=== PATIENT | female | born 1955 | race Caucasian/White ===

== ENCOUNTER 2017-04-11 20:01 | Emergency (ER) | payer BC ==
[2017-04-11 20:18] VITALS: BP 163/91
[2017-04-11] MEDS ORDERED: NS 0.9% 1000 ML* 1,000 ML IV SCH (20:30)
[2017-04-11 20:49] LABS: Hematocrit 46 % (35-47); Hemoglobin 15.1 g/dl (12.0-16.0); Mean Corpuscular HGB Conc 33 g/dl (31-36); Mean Corpuscular Hemoglobin 30 pg (27-31); Mean Corpuscular Volume 90 fL (80-97); Mean Platelet Volume 8 um3 (7.4-10.4); Red Blood Count 5.11 10^6/ul (4.0-5.4); Red Cell Distribution Width 15 % (10.5-15)
[2017-04-11 21:05] LABS: ALT 37 U/L (7-52); AST 23 U/L (13-39); Albumin 4.5 g/dL (3.2-5.2); Alkaline Phosphatase 85 U/L (34-104); Anion Gap 7 mmol/L (2-11); BUN/Creatinine Ratio 25.5 (8-20); Blood Urea Nitrogen 14 mg/dL (6-24); C Reactive Protein 2.06 mg/L (< 5.00); CO2 Carbon Dioxide 29 mmol/L (22-32); Calcium 9.7 mg/dL (8.6-10.3); Chloride 106 mmol/L (101-111); Creatine Kinase 62 U/L (10-223); Glucose 113 mg/dL (70-100); Lipase 18 U/L (11.0-82.0); Magnesium 2.1 mg/dL (1.9-2.7); Potassium 3.7 mmol/L (3.5-5.0); Sodium 142 mmol/L (133-145); Total Protein 7.5 g/dL (6.4-8.9)
[2017-04-11 21:11] LABS: Urine Bilirubin Negative (Negative); Urine Glucose Negative (Negative); Urine Nitrite Negative (Negative)
[2017-04-11 21:18] LABS: Benzodiazepine Urine Screen Presumptive Positive (None Detect)
[2017-04-11] MEDS ORDERED: Nicotine Inhaler* 10 MG AMP ONE (21:19)
[2017-04-11] MEDS ORDERED: Mouth Piece, Nicotine* 1 EACH CARTRIDGE ONE (21:20)
[2017-04-11 21:23] LABS: Acetaminophen < 15 mcg/mL; Alcohol 175 mg/dL (<10); Salicylate < 2.50 mg/dL (<30)
[2017-04-11 21:39] LABS: TSH (Thyroid Stimulating Horm) 0.03 mcIU/mL (0.34-5.60)
[2017-04-11] MEDS: Nicotine Inhaler* 10 MG AMP INH PRN (22:00)
[2017-04-11] MEDS: Mouth Piece, Nicotine* 1 EACH CARTRIDGE INH ONE (22:01)
--- NOTE | 2017-04-11 22:41 | ED ---
Kandy Vogt Thomas, scribed for Shyam Tolliver MD on 04/11/17 at 2057 . Respiratory - HPI Summary HPI Summary: 61 y/o F referred from Urgent care c/o generalized malaise and cough with mucus production that began 3-4 weeks ago and has worsened since. Pt has no relief from allergy medications, inhaler, antibiotics, and Prednisone. Associated symptoms include fatigue, wheezing and sore throat. She denies fever/chills. Pt is currently taking 20 mg Doxycycline twice a day, 20 mg Prednisone three times per day, and 220 mg of Asmanex. - History of Current Complaint Chief Complaint: EDShortnessOfBreath Stated Complaint: UPPER RESP COMPLAINT/SENT BY CC Time Seen by Provider: 04/11/17 20:06 Hx Obtained From: Patient Onset/Duration: Lasting Weeks - cough began 3-4 weeks ago, Still Present Timing: Constant Current Severity: Moderate Pain Intensity: 0 Character: Wheezing, Cough (Productive) - with mucus production Sputum Color: Clear Aggravating Factor(s): Nothing Alleviating Factor(s): Nothing Associated Signs and Symptoms: Wheezing - Allergy/Home Medications Allergies/Adverse Reactions: Allergies Allergy/AdvReac Type Severity Reaction Status Date / Time No Known Allergies Allergy Verified 04/11/17 20:18 PMH/Surg Hx/FS Hx/Imm Hx Previously Healthy: No Endocrine/Hematology History: Reports: Hx Thyroid Disease - TOTAL THYROIDECTOMY AND PARATHYROIDECTOMY Denies: Hx Diabetes Cardiovascular History: Reports: Hx Hypertension - HX OF NO PROBLEMS NOW, Other Cardiovascular Problems/Disorders - Hx HTN Denies: Hx Pacemaker/ICD GI History: Reports: Other GI Disorders - Diverticulities 12/24 History: Denies: Hx Renal Disease Musculoskeletal History: Denies: Hx Osteoporosis Sensory History: Denies: Hx Contacts or Glasses, Hx Hearing Aid Opthamlomology History: Denies: Hx Contacts or Glasses Neurological History: Reports: Other Neuro Impairments/Disorders - Takes neurontin for restless leg syndrome Psychiatric History: Reports: Hx Depression - CONTROL IH MED PT. STATES Denies: Hx Panic Disorder - Cancer History Cancer Type, Location and Year: Thyroid CA 11/24 Hx Chemotherapy: No Hx Radiation Therapy: No - Surgical History Surgery Procedure, Year, and Place: 2004 LEFT FOOT 5TH TOE [place]GERY, [facility] [place]. 2006 RIGHT FOOT 5TH TOE SURGERY, [facility] [place]. 2013 TOTAL THYROIDECTOMY AND PARATHYROIDECTOMY , [facility] [place]. 2016 RIGHT FOOT PLANTAR FAS Hx Anesthesia Reactions: No Infectious Disease History: No Infectious Disease History: Denies: Traveled Outside the [place] in Last 30 Days - Family History Known Family History: Positive: Cardiac Disease, Diabetes - Social History Alcohol Use: Occasionally Alcohol Amount: 3 today Substance Use Type: Reports: None Smoking Status (MU): Heavy Every Day Tobacco Smoker Type: Cigarettes Amount Used/How Often: PACK A DAY Have You Smoked in the Last Year: Yes Review of Systems Positive: Fatigue, Other - Generalized malaise. Negative: Fever, Chills Positive: Sore Throat Positive: Cough - Productive cough, Other - Wheezing All Other Systems Reviewed And Are Negative: Yes Physical Exam - Summary Physical Exam Summary: General: well-appearing, no pain distress Skin: warm, color reflects adequate perfusion, dry Head: normal Eyes: EOMI, HANNA ENT: normal Neck: supple, nontender Respiratory: Rhonchi with cough, breath sounds present. Cardiovascular: RRR Abdomen: soft, nontender Bowel: present Musculoskeletal: normal, strength/ROM intact Neurological: normal, sensory/motor intact, A&O x3 Psychological: affect/mood appropriate Triage Information Reviewed: Yes Vital Signs On Initial Exam: Initial Vitals Temp Pulse Resp BP Pulse Ox 97.4 F 82 18 163/91 99 04/11/17 20:09 04/11/17 20:09 04/11/17 20:09 04/11/17 20:09 04/11/17 20:09 Vital Signs Reviewed: Yes - [place] Coma Scale Coma Scale Total: 15 Diagnostics - Vital Signs Vital Signs Temp Pulse Resp BP Pulse Ox 04/11/17 20:36 99 04/11/17 20:09 97.4 F 82 18 163/91 99 - Laboratory Lab Results: Lab Results 04/11/17 04/11/17 04/11/17 Range/Units 20:36 20:36 20:36 WBC (3.5-10.8) 10^3/ul RBC (4.0-5.4) 10^6/ul Hgb (12.0-16.0) g/dl Hct (35-47) % MCV (80-97) fL MCH (27-31) pg MCHC (31-36) g/dl RDW (10.5-15) % Plt Count (150-450) 10^3/ul MPV (7.4-10.4) um3 Neut % (Auto) (38-83) % Lymph % (Auto) (25-47) % [place] % (Auto) (1-9) % Eos % (Auto) (0-6) % Baso % (Auto) (0-2) % Absolute Neuts (auto) (1.5-7.7) 10^3/ul Absolute Lymphs (auto) (1.0-4.8) 10^3/ul Absolute Monos (auto) (0-0.8) 10^3/ul Absolute Eos (auto) (0-0.6) 10^3/ul Absolute Basos (auto) (0-0.2) 10^3/ul Absolute Nucleated RBC 10^3/ul Nucleated RBC % INR (Anticoag Therapy) 0.78 L (0.89-1.11) APTT 26.2 (26.0-36.3) seconds D-Dimer, Quantitative < 200 (Less Than 230) ng/mL Sodium 142 (133-145) mmol/L Potassium 3.7 (3.5-5.0) mmol/L Chloride 106 (101-111) mmol/L Carbon Dioxide 29 (22-32) mmol/L Anion Gap 7 (2-11) mmol/L BUN 14 (6-24) mg/dL Creatinine 0.55 (0.51-0.95) mg/dL Est GFR ( Amer) 144.0 (>60) Est GFR (Non-Af Amer) 112.0 (>60) BUN/Creatinine Ratio 25.5 H (8-20) Glucose 113 H (70-100) mg/dL Lactic Acid (0.5-2.0) mmol/L Calcium 9.7 (8.6-10.3) mg/dL Magnesium 2.1 (1.9-2.7) mg/dL Total Bilirubin 0.30 (0.2-1.0) mg/dL AST 23 (13-39) U/L ALT 37 (7-52) U/L Alkaline Phosphatase 85 (34-104) U/L Ammonia 47 (16-53) mol/L Total Creatine Kinase 62 (10-223) U/L CK-MB (CK-2) 4.3 (0.6-6.3) ng/mL Troponin I 0.00 (<0.04) ng/mL C-Reactive Protein 2.06 (< 5.00) mg/L Total Protein 7.5 (6.4-8.9) g/dL Albumin 4.5 (3.2-5.2) g/dL Globulin 3.0 (2-4) g/dL Albumin/Globulin Ratio 1.5 (1-3) Lipase 18 (11.0-82.0) U/L TSH 0.03 L (0.34-5.60) mcIU/mL Urine Color Urine Appearance Urine pH (5-9) Ur Specific [place] (1.010-1.030) Urine Protein (Negative) Urine Ketones (Negative) Urine Blood (Negative) Urine Nitrate (Negative) Urine Bilirubin (Negative) Urine Urobilinogen (Negative) Ur Leukocyte Esterase (Negative) Urine Glucose (Negative) Salicylates < 2.50 (<30) mg/dL Urine Opiates Screen (None Detect) Acetaminophen < 15 mcg/mL Ur Barbiturates Screen (None Detect) Ur Phencyclidine Scrn (None Detect) Ur Amphetamines Screen (None Detect) U Benzodiazepines Scrn (None Detect) Urine Cocaine Screen (None Detect) U Cannabinoids Screen (None Detect) Serum Alcohol 175 H (<10) mg/dL 04/11/17 04/11/17 04/11/17 Range/Units 20:36 20:36 20:50 WBC 16.0 H (3.5-10.8) 10^3/ul RBC 5.11 (4.0-5.4) 10^6/ul Hgb 15.1 (12.0-16.0) g/dl Hct 46 (35-47) % MCV 90 (80-97) fL MCH 30 (27-31) pg MCHC 33 (31-36) g/dl RDW 15 (10.5-15) % Plt Count 445 (150-450) 10^3/ul MPV 8 (7.4-10.4) um3 Neut % (Auto) 89.4 H (38-83) % Lymph % (Auto) 8.4 L (25-47) % [place] % (Auto) 1.9 (1-9) % Eos % (Auto) 0 (0-6) % Baso % (Auto) 0.3 (0-2) % Absolute Neuts (auto) 14.3 H (1.5-7.7) 10^3/ul Absolute Lymphs (auto) 1.3 (1.0-4.8) 10^3/ul Absolute Monos (auto) 0.3 (0-0.8) 10^3/ul Absolute Eos (auto) 0 (0-0.6) 10^3/ul Absolute Basos (auto) 0 (0-0.2) 10^3/ul Absolute Nucleated RBC 0 10^3/ul Nucleated RBC % 0 INR (Anticoag Therapy) (0.89-1.11) APTT (26.0-36.3) seconds D-Dimer, Quantitative (Less Than 230) ng/mL Sodium (133-145) mmol/L Potassium (3.5-5.0) mmol/L Chloride (101-111) mmol/L Carbon Dioxide (22-32) mmol/L Anion Gap (2-11) mmol/L BUN (6-24) mg/dL Creatinine (0.51-0.95) mg/dL Est GFR ( Amer) (>60) Est GFR (Non-Af Amer) (>60) BUN/Creatinine Ratio (8-20) Glucose (70-100) mg/dL Lactic Acid 1.5 (0.5-2.0) mmol/L Calcium (8.6-10.3) mg/dL Magnesium (1.9-2.7) mg/dL Total Bilirubin (0.2-1.0) mg/dL AST (13-39) U/L ALT (7-52) U/L Alkaline Phosphatase (34-104) U/L Ammonia (16-53) mol/L Total Creatine Kinase (10-223) U/L CK-MB (CK-2) (0.6-6.3) ng/mL Troponin I (<0.04) ng/mL C-Reactive Protein (< 5.00) mg/L Total Protein (6.4-8.9) g/dL Albumin (3.2-5.2) g/dL Globulin (2-4) g/dL Albumin/Globulin Ratio (1-3) Lipase (11.0-82.0) U/L TSH (0.34-5.60) mcIU/mL Urine Color Urine Appearance Urine pH (5-9) Ur Specific [place] (1.010-1.030) Urine Protein (Negative) Urine Ketones (Negative) Urine Blood (Negative) Urine Nitrate (Negative) Urine Bilirubin (Negative) Urine Urobilinogen (Negative) Ur Leukocyte Esterase (Negative) Urine Glucose (Negative) Salicylates (<30) mg/dL Urine Opiates Screen None detected (None Detect) Acetaminophen mcg/mL Ur Barbiturates Screen None detected (None Detect) Ur Phencyclidine Scrn None detected (None Detect) Ur Amphetamines Screen None detected (None Detect) U Benzodiazepines Scrn Presumptive positive H (None Detect) Urine Cocaine Screen None detected (None Detect) U Cannabinoids Screen None detected (None Detect) Serum Alcohol (<10) mg/dL 04/11/17 Range/Units 20:50 WBC (3.5-10.8) 10^3/ul RBC (4.0-5.4) 10^6/ul Hgb (12.0-16.0) g/dl Hct (35-47) % MCV (80-97) fL MCH (27-31) pg MCHC (31-36) g/dl RDW (10.5-15) % Plt Count (150-450) 10^3/ul MPV (7.4-10.4) um3 Neut % (Auto) (38-83) % Lymph % (Auto) (25-47) % [place] % (Auto) (1-9) % Eos % (Auto) (0-6) % Baso % (Auto) (0-2) % Absolute Neuts (auto) (1.5-7.7) 10^3/ul Absolute Lymphs (auto) (1.0-4.8) 10^3/ul Absolute Monos (auto) (0-0.8) 10^3/ul Absolute Eos (auto) (0-0.6) 10^3/ul Absolute Basos (auto) (0-0.2) 10^3/ul Absolute Nucleated RBC 10^3/ul Nucleated RBC % INR (Anticoag Therapy) (0.89-1.11) APTT (26.0-36.3) seconds D-Dimer, Quantitative (Less Than 230) ng/mL Sodium (133-145) mmol/L Potassium (3.5-5.0) mmol/L Chloride (101-111) mmol/L Carbon Dioxide (22-32) mmol/L Anion Gap (2-11) mmol/L BUN (6-24) mg/dL Creatinine (0.51-0.95) mg/dL Est GFR ( Amer) (>60) Est GFR (Non-Af Amer) (>60) BUN/Creatinine Ratio (8-20) Glucose (70-100) mg/dL Lactic Acid (0.5-2.0) mmol/L Calcium (8.6-10.3) mg/dL Magnesium (1.9-2.7) mg/dL Total Bilirubin (0.2-1.0) mg/dL AST (13-39) U/L ALT (7-52) U/L Alkaline Phosphatase (34-104) U/L Ammonia (16-53) mol/L Total Creatine Kinase (10-223) U/L CK-MB (CK-2) (0.6-6.3) ng/mL Troponin I (<0.04) ng/mL C-Reactive Protein (< 5.00) mg/L Total Protein (6.4-8.9) g/dL Albumin (3.2-5.2) g/dL Globulin (2-4) g/dL Albumin/Globulin Ratio (1-3) Lipase (11.0-82.0) U/L TSH (0.34-5.60) mcIU/mL Urine Color Yellow Urine Appearance Cloudy Urine pH 6.0 (5-9) Ur Specific [place] 1.004 L (1.010-1.030) Urine Protein Negative (Negative) Urine Ketones Negative (Negative) Urine Blood Negative (Negative) Urine Nitrate Negative (Negative) Urine Bilirubin Negative (Negative) Urine Urobilinogen Negative (Negative) Ur Leukocyte Esterase Negative (Negative) Urine Glucose Negative (Negative) Salicylates (<30) mg/dL Urine Opiates Screen (None Detect) Acetaminophen mcg/mL Ur Barbiturates Screen (None Detect) Ur Phencyclidine Scrn (None Detect) Ur Amphetamines Screen (None Detect) U Benzodiazepines Scrn (None Detect) Urine Cocaine Screen (None Detect) U Cannabinoids Screen (None Detect) Serum Alcohol (<10) mg/dL Result Diagrams: 04/11/17 20:36 04/11/17 20:36 Lab Statement: Any lab studies that have been ordered have been reviewed, and results considered in the medical decision making process. Disposition - Course Course Of Treatment: Medications reviewed. BP noted and advised to follow up with PCP. DISCUSSED LAB RESULTS WITH PATIENT TO INCLUDE LOW TSH INDICATING A NEED FOR A CHANGE IN THYROID MEDICATION DOSING. WILL F/U WITH PMD; RETURN IF WORSE. - Diagnoses Provider Diagnoses: Bronchitis, COPD (chronic obstructive pulmonary disease), Bronchospasm, Alcohol intoxication, Hyperthyroidism Discharge - Discharge Plan Condition: Stable Disposition: HOME Patient Education Materials: Bronchospasm (ED), Acute Bronchitis (ED), COPD ( Chronic Obstructive Pulmonary Disease) (ED), Alcohol Intoxication (ED), Induced Thyroid Disorders (ED) Referrals: Nicolle Estrada MD [Primary Care Provider] - Additional Instructions: FOLLOW UP WITH YOUR DOCTOR FOR YOUR BRONCHITIS, COPD AND LOW TSH WHICH INDICATES YOU MAY NEED A CHANGE IN YOUR THYROID MEDICATION DOSING. RETURN TO THE EMERGENCY DEPARTMENT FOR ANY WORSENING OF YOUR CONDITION OR QUESTIONS OR CONCERNS. The documentation as recorded by the Kandy fonseca Thomas accurately reflects the service I personally performed and the decisions made by me, Shyam Tolliver MD.
[2017-04-13] MEDS: Mouth Piece, Nicotine* 1 EACH CARTRIDGE INH ONE (05:08)
[2017-04-13] MEDS: Nicotine Inhaler* 10 MG AMP INH PRN (05:08)
== END 2017-04-11 22:50 | disposition home or self-care (01) ==
LOC: ED 20:01
DX: J40 Bronchitis, not specified as acute or chronic (principal); J44.9 Chronic obstructive pulmonary disease, unspecified; F10.129 Alcohol abuse with intoxication, unspecified; E05.90 Thyrotoxicosis, unspecified without thyrotoxic crisis or storm; R06.2 Wheezing; R05 Cough; R53.83 Other fatigue; F17.210 Nicotine dependence, cigarettes, uncomplicated
CPT/HCPCS: 36415; 80053; 80307; 80320; 80329; 81003; 82140; 82550; 82553; 83605; 83690; 83735; 84443; 84484; 85025; 85379; 85610; 85730; 86140; 99282; A9270-GY; G0480

== ENCOUNTER → 2017-04-12 16:02 | Emergency (ER) | payer BC ==
[~2017-04-12 16:02] MED LIST: Albuterol 2.5 MG/3 ML NEB.SOL* (0.083%) INH ONE; Albuterol/Ipratropium NEB.SOL* Albuterol 2.5 MG/Ipratropium 0.5 MG 3 ML INH ONE; DOXYcycline CAP(*) 100 MG PO ONE; Gabapentin CAP(*) 300 MG PO ONE; LORazepam TAB(*) 1 MG PO ONE; Mouth Piece, Nicotine* 1 EACH CARTRIDGE INH ONE; Nicotine Inhaler* 10 MG AMP INH PRN
[2017-04-12 18:19] LABS: Urine Bilirubin Negative (Negative); Urine Glucose Negative (Negative); Urine Nitrite Negative (Negative)
[2017-04-12 18:36] LABS: Benzodiazepine Urine Screen Presumptive Positive (None Detect)
[2017-04-12 18:37] LABS: Hematocrit 45 % (35-47); Mean Corpuscular HGB Conc 34 g/dl (31-36); Mean Corpuscular Hemoglobin 30 pg (27-31); Mean Corpuscular Volume 90 fL (80-97); Mean Platelet Volume 8 um3 (7.4-10.4); Red Blood Count 4.98 10^6/ul (4.0-5.4); Red Cell Distribution Width 15 % (10.5-15); White Blood Count 17.6 10^3/ul (3.5-10.8)
[2017-04-12 18:39] LABS: Add Diff/Slide Review? Slide Review Added; Comments Flag Yes
[2017-04-12 18:54] LABS: ALT 32 U/L (7-52); AST 19 U/L (13-39); Albumin 4.3 g/dL (3.2-5.2); Alkaline Phosphatase 79 U/L (34-104); Anion Gap 7 mmol/L (2-11); BUN/Creatinine Ratio 25.4 (8-20); Blood Urea Nitrogen 15 mg/dL (6-24); CO2 Carbon Dioxide 30 mmol/L (22-32); Calcium 9.9 mg/dL (8.6-10.3); Chloride 104 mmol/L (101-111); EGFR African American 132.8 (>60); EGFR Non-African American 103.3 (>60); Globulin 2.8 g/dL (2-4); Glucose 105 mg/dL (70-100); Magnesium 2.1 mg/dL (1.9-2.7); Potassium 4.1 mmol/L (3.5-5.0); Sodium 141 mmol/L (133-145); Total Protein 7.1 g/dL (6.4-8.9)
[2017-04-12 19:13] LABS: Acetaminophen < 15 mcg/mL; Alcohol 108 mg/dL (<10); Salicylate < 2.50 mg/dL (<30)
[2017-04-12 19:28] LABS: TSH (Thyroid Stimulating Horm) 0.02 mcIU/mL (0.34-5.60)
--- NOTE | 2017-04-12 22:43 | ED ---
Kim Vogt Alfonso, scribed for Shyam Tolliver MD on 04/12/17 at 1806 . Substance Abuse/Use - HPI Summary HPI Summary: This patient is a 61 year old F presenting to [facility] with a chief complaint of daily ETOH abuse since approximately one month ago. She states I have been drinking because the prescription is not working. The patient rates the pain 0/ 10 in severity. Symptoms alleviated by nothing. Patient reports depressed, anxious, depleted, self-medicating, insomnia, tremors, wheezing, and sinus congestion. Medications reviewed. Allergies reviewed. - History Of Current Complaint Chief Complaint: EDMentalHealth Stated Complaint: ETOH Time Seen by Provider: 04/12/17 18:01 Hx Obtained From: Patient Onset/Duration of Drug/ETOH Abuse: Weeks - 1 month/ ~4 weeks Ingestion History: Type/Name Of Drug - ETOH Overdose Characteristics: Oral Timing Of Abuse: Daily Character: Depressed, Anxious Alleviating Factor(s): Nothing Associated Signs And Symptoms: Other: - depressed, anxious, depleted, self- medicating, insomnia, tremors, wheezing, and sinus congestion. - Allergies/Home Medications Allergies/Adverse Reactions: Allergies Allergy/AdvReac Type Severity Reaction Status Date / Time No Known Allergies Allergy Verified 04/11/17 20:18 PMH/Surg Hx/FS Hx/Imm Hx Endocrine/Hematology History: Reports: Hx Thyroid Disease - TOTAL THYROIDECTOMY AND PARATHYROIDECTOMY Denies: Hx Diabetes Cardiovascular History: Reports: Hx Hypertension - HX OF NO PROBLEMS NOW, Other Cardiovascular Problems/Disorders - Hx HTN Denies: Hx Pacemaker/ICD GI History: Reports: Other GI Disorders - Diverticulities 12/24 History: Denies: Hx Renal Disease Musculoskeletal History: Denies: Hx Osteoporosis Sensory History: Denies: Hx Contacts or Glasses, Hx Hearing Aid Opthamlomology History: Denies: Hx Contacts or Glasses Neurological History: Reports: Other Neuro Impairments/Disorders - Takes neurontin for restless leg syndrome Psychiatric History: Reports: Hx Depression - CONTROL WTIH MED PT. STATES Denies: Hx Panic Disorder - Cancer History Cancer Type, Location and Year: Thyroid CA 11/24 Hx Chemotherapy: No Hx Radiation Therapy: No - Surgical History Surgery Procedure, Year, and Place: 2004 LEFT FOOT 5TH TOE SURGERY, [facility] – [place]. 2006 RIGHT FOOT 5TH TOE SURGERY, [facility] [place]. 2013 TOTAL THYROIDECTOMY AND PARATHYROIDECTOMY , [facility] [place]. 2016 RIGHT FOOT PLANTAR FAS Hx Anesthesia Reactions: No Infectious Disease History: No Infectious Disease History: Denies: Traveled Outside the [place] in Last 30 Days - Family History Known Family History: Positive: Cardiac Disease, Diabetes - Social History Alcohol Use: Daily Alcohol Amount: 1 bottle of wine Substance Use Type: Reports: None Smoking Status (MU): Heavy Every Day Tobacco Smoker Type: Cigarettes Amount Used/How Often: PACK A DAY Have You Smoked in the Last Year: Yes Review of Systems Positive: Other - Sinus congestion Positive: Other - wheezing Neurological: Other - ETOH abuse, depleted, self-medicating, insomnia, tremors Positive: Anxious, Depressed All Other Systems Reviewed And Are Negative: Yes Physical Exam - Summary Physical Exam Summary: General: well-appearing, no pain distress Skin: warm, color reflects adequate perfusion, dry Head: normal Eyes: EOMI, HANNA ENT: normal Neck: supple, nontender Respiratory: Cough, occasional wheezing, breath sounds present Cardiovascular: RRR Abdomen: soft, nontender Bowel: present Musculoskeletal: normal, strength/ROM intact Neurological: Shaking, A&O x3 Psychological: anxious Triage Information Reviewed: Yes Vital Signs On Initial Exam: Initial Vitals Temp Pulse Resp BP Pulse Ox 98.1 F 94 20 147/103 98 04/12/17 16:05 04/12/17 16:05 04/12/17 16:05 04/12/17 16:05 04/12/17 16:05 Vital Signs Reviewed: Yes - [place] Coma Scale Coma Scale Total: 15 Diagnostics - Vital Signs Vital Signs Temp Pulse Resp BP Pulse Ox 04/12/17 16:05 98.1 F 94 20 147/103 98 - Laboratory Lab Results: Lab Results 04/12/17 04/12/17 04/12/17 Range/Units 17:25 17:25 18:23 WBC (3.5-10.8) 10^3/ul RBC (4.0-5.4) 10^6/ul Hgb (12.0-16.0) g/dl Hct (35-47) % MCV (80-97) fL MCH (27-31) pg MCHC (31-36) g/dl RDW (10.5-15) % Plt Count (150-450) 10^3/ul MPV (7.4-10.4) um3 Neut % (Auto) (38-83) % Lymph % (Auto) (25-47) % [place] % (Auto) (1-9) % Eos % (Auto) (0-6) % Baso % (Auto) (0-2) % Absolute Neuts (auto) (1.5-7.7) 10^3/ul Absolute Lymphs (auto) (1.0-4.8) 10^3/ul Absolute Monos (auto) (0-0.8) 10^3/ul Absolute Eos (auto) (0-0.6) 10^3/ul Absolute Basos (auto) (0-0.2) 10^3/ul Absolute Nucleated RBC 10^3/ul Nucleated RBC % Sodium 141 (133-145) mmol/L Potassium 4.1 (3.5-5.0) mmol/L Chloride 104 (101-111) mmol/L Carbon Dioxide 30 (22-32) mmol/L Anion Gap 7 (2-11) mmol/L BUN 15 (6-24) mg/dL Creatinine 0.59 (0.51-0.95) mg/dL Est GFR ( Amer) 132.8 (>60) Est GFR (Non-Af Amer) 103.3 (>60) BUN/Creatinine Ratio 25.4 H (8-20) Glucose 105 H (70-100) mg/dL Calcium 9.9 (8.6-10.3) mg/dL Magnesium 2.1 (1.9-2.7) mg/dL Total Bilirubin 0.30 (0.2-1.0) mg/dL AST 19 (13-39) U/L ALT 32 (7-52) U/L Alkaline Phosphatase 79 (34-104) U/L Total Protein 7.1 (6.4-8.9) g/dL Albumin 4.3 (3.2-5.2) g/dL Globulin 2.8 (2-4) g/dL Albumin/Globulin Ratio 1.5 (1-3) TSH 0.02 L (0.34-5.60) mcIU/mL Urine Color Yellow Urine Appearance Clear Urine pH 6.0 (5-9) Ur Specific [place] 1.006 L (1.010-1.030) Urine Protein Negative (Negative) Urine Ketones Negative (Negative) Urine Blood Negative (Negative) Urine Nitrate Negative (Negative) Urine Bilirubin Negative (Negative) Urine Urobilinogen Negative (Negative) Ur Leukocyte Esterase Negative (Negative) Urine Glucose Negative (Negative) Salicylates < 2.50 (<30) mg/dL Urine Opiates Screen None detected (None Detect) Acetaminophen < 15 mcg/mL Ur Barbiturates Screen None detected (None Detect) Ur Phencyclidine Scrn None detected (None Detect) Ur Amphetamines Screen None detected (None Detect) U Benzodiazepines Scrn Presumptive positive H (None Detect) Urine Cocaine Screen None detected (None Detect) U Cannabinoids Screen Presumptive positive H (None Detect) Serum Alcohol 108 H (<10) mg/dL 04/12/17 Range/Units 18:23 WBC 17.6 H (3.5-10.8) 10^3/ul RBC 4.98 (4.0-5.4) 10^6/ul Hgb 15.0 (12.0-16.0) g/dl Hct 45 (35-47) % MCV 90 (80-97) fL MCH 30 (27-31) pg MCHC 34 (31-36) g/dl RDW 15 (10.5-15) % Plt Count 413 (150-450) 10^3/ul MPV 8 (7.4-10.4) um3 Neut % (Auto) 83.9 H (38-83) % Lymph % (Auto) 12.0 L (25-47) % [place] % (Auto) 3.6 (1-9) % Eos % (Auto) 0 (0-6) % Baso % (Auto) 0.5 (0-2) % Absolute Neuts (auto) 14.8 H (1.5-7.7) 10^3/ul Absolute Lymphs (auto) 2.1 (1.0-4.8) 10^3/ul Absolute Monos (auto) 0.6 (0-0.8) 10^3/ul Absolute Eos (auto) 0 (0-0.6) 10^3/ul Absolute Basos (auto) 0.1 (0-0.2) 10^3/ul Absolute Nucleated RBC 0.01 10^3/ul Nucleated RBC % 0 Sodium (133-145) mmol/L Potassium (3.5-5.0) mmol/L Chloride (101-111) mmol/L Carbon Dioxide (22-32) mmol/L Anion Gap (2-11) mmol/L BUN (6-24) mg/dL Creatinine (0.51-0.95) mg/dL Est GFR ( Amer) (>60) Est GFR (Non-Af Amer) (>60) BUN/Creatinine Ratio (8-20) Glucose (70-100) mg/dL Calcium (8.6-10.3) mg/dL Magnesium (1.9-2.7) mg/dL Total Bilirubin (0.2-1.0) mg/dL AST (13-39) U/L ALT (7-52) U/L Alkaline Phosphatase (34-104) U/L Total Protein (6.4-8.9) g/dL Albumin (3.2-5.2) g/dL Globulin (2-4) g/dL Albumin/Globulin Ratio (1-3) TSH (0.34-5.60) mcIU/mL Urine Color Urine Appearance Urine pH (5-9) Ur Specific [place] (1.010-1.030) Urine Protein (Negative) Urine Ketones (Negative) Urine Blood (Negative) Urine Nitrate (Negative) Urine Bilirubin (Negative) Urine Urobilinogen (Negative) Ur Leukocyte Esterase (Negative) Urine Glucose (Negative) Salicylates (<30) mg/dL Urine Opiates Screen (None Detect) Acetaminophen mcg/mL Ur Barbiturates Screen (None Detect) Ur Phencyclidine Scrn (None Detect) Ur Amphetamines Screen (None Detect) U Benzodiazepines Scrn (None Detect) Urine Cocaine Screen (None Detect) U Cannabinoids Screen (None Detect) Serum Alcohol (<10) mg/dL Result Diagrams: 04/12/17 18:23 04/12/17 18:23 Lab Statement: Any lab studies that have been ordered have been reviewed, and results considered in the medical decision making process. Course/Dx - Course Course Of Treatment: DISPOSITION PENDING AT SHIFT CHANGE. NO CRITICAL CARE TIME. - Diagnoses Provider Diagnoses: Mental health problem, Hyperthyroidism, Bronchitis, COPD (chronic obstructive pulmonary disease) Discharge - Discharge Plan Condition: Stable Disposition: OTHER Discharge Disposition Comment: . Referrals: Nicolle Estrada MD [Primary Care Provider] - The documentation as recorded by the Kim fonseca Alfonso accurately reflects the service I personally performed and the decisions made by , Shyam Tolliver MD.
--- NOTE | 2017-04-13 04:45 | ED ---
Sin, Mendez García, scribed for Sharon Luna MD on 04/13/17 at 0439 . Progress - Progress Note Progress Note: 61yo female signed out from Dr. Tolliver at the end of his shift. Pending MHE and disposition. - Consult/PCP Time Called: 19:50 Re-Evaluation - Re-Evaluation First Eval Re-Evaluation Time: 04:28 Comment: Informed pt of her high BP,184/100. Pt states she is unable to sleep and is agitated. Denies pain anywhere. Pt agrees to repeat breathing tx for her cough. Will give lorazepam as well. RN in flex will give meds ordered by Dr. Tolliver, including gabapentin, nictotine inhaler, and doxycycline. Course/Dx - Course Course Of Treatment: 909: Per Leonel who consulted Dr. Guo, pt may be DC'd. Repeat BP 166/97. Pt without CP or pain anywhere, or any focal neurologic signs. Pt agrees with DC. NO CRITICAL CARE TIME. Pt given mental health DC instructions and bronchitis instructions and advised to finish doxycycline, use inhaler prescribe as needed, and to follow up re elevated BP within 2 days. Dispo: home. condition: stable - Diagnoses Provider Diagnoses: Mental health problem, Hyperthyroidism, Bronchitis, COPD (chronic obstructive pulmonary disease), Hypertension, poor control The documentation as recorded by the Ricky fonseca Benjamin accurately reflects the service I personally performed and the decisions made by me, Sharon Luna MD.
[2017-04-13 09:25] VITALS: BP 166/97
== END | disposition home or self-care (01) ==
LOC: ED 16:02
DX: F32.9 Major depressive disorder, single episode, unspecified (principal); F41.9 Anxiety disorder, unspecified; F10.10 Alcohol abuse, uncomplicated; J40 Bronchitis, not specified as acute or chronic; J44.9 Chronic obstructive pulmonary disease, unspecified; E03.9 Hypothyroidism, unspecified; I10 Essential (primary) hypertension; Z85.850 Personal history of malignant neoplasm of thyroid; F17.210 Nicotine dependence, cigarettes, uncomplicated
CPT/HCPCS: 36415; 80053; 80307; 80320; 80329; 81003; 83735; 84443; 85025; 94640; 99283; A9270-GY; G0480

== ENCOUNTER 2018-01-20 10:24 | Day surgery (SDC) | payer BC ==
[~2018-01-20 10:24] MED LIST changes: -Albuterol 2.5 MG/3 ML NEB.SOL* (0.083%) INH ONE; -Albuterol/Ipratropium NEB.SOL* Albuterol 2.5 MG/Ipratropium 0.5 MG 3 ML INH ONE; +Buffered Lidocaine 0.9% SYRIN* 5 ML/SYR SYRINGE INTRADERM ONE; -DOXYcycline CAP(*) 100 MG PO ONE; +Dexamethasone IV* 4 MG/ML 1 ML (4 MG) IV SLOW PU ONE; +Famotidine IV* 10 MG/ML 2 ML (20 mg) IV ONE; -Gabapentin CAP(*) 300 MG PO ONE; -LORazepam TAB(*) 1 MG PO ONE; -Mouth Piece, Nicotine* 1 EACH CARTRIDGE INH ONE; -Nicotine Inhaler* 10 MG AMP INH PRN; +fentaNYL* 50 MCG/ML 2 ML VIAL (100 MCG VIAL) ONE
[2018-01-20] MEDS ORDERED: Famotidine IV* 10 MG/ML 2 ML (20 mg) ONE (10:38)
[2018-01-20] MEDS ORDERED: Dexamethasone IV* 4 MG/ML 1 ML (4 MG) ONE ×2 (10:38→11:59)
[2018-01-20] MEDS ORDERED: ceFAZolin 2 GM PREMIX (*) 2 GM/50 ML BAG IVPB ONE (10:38)
[2018-01-20] MEDS ORDERED: fentaNYL* 50 MCG/ML 2 ML VIAL (100 MCG VIAL) ONE (11:53)
[2018-01-20] MEDS ORDERED: Midazolam* 1 MG/ML 5 ML VIAL (5 MG) ONE (11:53)
[2018-01-20] MEDS ORDERED: Lidocaine 1% INJ* 10 MG/ML 30 ML SDV ONE (11:59)
[2018-01-20] MEDS ORDERED: Bupivacaine 0.25% W/EPI* 10 ML SDV ONE (12:00)
[2018-01-20] MEDS ORDERED: Bupivacaine 0.5% PF 10 ML VIAL INJ ONE (12:00)
[2018-01-20] MEDS ORDERED: HYDROcodone/ACETAMIN 5-325 MG* 1 TAB PO PRN (12:05)
[2018-01-20] MEDS ORDERED: Ondansetron INJ* 2 MG/ML VIAL IV PRN (12:05)
[2018-01-20] MEDS ORDERED: Naloxone* 0.4 MG/ML 1 ML VIAL IV PRN (12:05)
[2018-01-20] MEDS ORDERED: Ketorolac INJ* 30 MG/ML 1 ML VIAL IV PRN (12:05)
[2018-01-20] MEDS ORDERED: fentaNYL* 50 MCG/ML 2 ML VIAL (100 MCG VIAL) IV PRN (12:05)
[2018-01-20] MEDS ORDERED: Lidocaine 2% PF * 5 ML VIAL ONE (12:19)
[2018-01-20] MEDS ORDERED: Propofol* 10 MG/ML 20 ML BTL IV PUSH ONE (12:19)
[2018-01-20 13:55] VITALS: BP 137/93
--- NOTE | 2018-01-21 02:45 | OP ---
OPERATIVE REPORT: DATE OF OPERATION: 01/20/18 - [facility] DATE OF : 53 SURGEON: Jorje Santos DPM ANESTHESIOLOGIST: Jacinta Gama MD ANESTHESIA: MAC local. PRE-OP DIAGNOSIS: Soft tissue mass, right foot. POST-OP DIAGNOSIS: Soft tissue mass, right foot. OPERATIVE PROCEDURE: Excision of soft tissue mass, right foot. ESTIMATED BLOOD LOSS: Less than 10 cc. IV FLUIDS: LR 1000 cc. DRAINS: None. SPECIMENS: Lipoma. DESCRIPTION OF PROCEDURE: The patient was taken to the operating room and was placed in supine position. Time-out was called and OR team agreed. The right foot was then blocked with 10 cc of 1% lidocaine plain locally around the lateral aspect of the right foot. The foot was then prepped and draped in a sterile manner. The right foot was exsanguinated with an Esmarch bandage and the cuff was inflated to 250 mmHg. Attention was then paid to the lateral aspect of the right foot where there is an 1.5 to 2 cm soft tissue mass that is underneath the skin. Ultrasound was that performed prior to the surgery reported a lipomatous-like structure in the subcutaneous area. I made a linear incision over the site. This was followed by a sharp and blunt dissection from the epidermis, dermis, subcutaneous tissue. When I got down to the subcutaneous tissue, I proceeded to cauterize any bleeders and retracted any neurovascular structure away from the site. I went ahead and dissected a well- defined left leg lipomatous mass. I tracked it all the way down to the deep fascia. It seems to emanate plantarly. It seems to be part of a fat pad. The plantar fat pad has herniated laterally and superiorly up the site of the foot towards the heel area. I went ahead and measured approximately 1.5 to 2 cm. I went ahead and resected it in its entirety. It does not appear to be down to the fascia and not down to muscle. It is limited to subcutaneous area. I went ahead and resected it, handed over to the administrative support technician in formalin for tissue examination to confirm if it is really indeed a lipoma. This completes the procedure. I irrigated the site. I closed the wound in a layered anatomical fashion with combination of Vicryl for the deeper tissues and for the skin, I went ahead and closed it with 3-0 nylon. The site was injected with 5 cc of 0.5 % Marcaine plain. I went ahead and injected 4 mg of dexamethasone phosphate. The patient tolerated the procedure and anesthesia well. The cuff was deflated. The foot was placed in a dry sterile dressing. The patient was taken to the Recovery in stable condition and was discharged in stable condition as well. I will follow her up in the office in 3 days. [id number]/CPS #: [id number] MTDD
== END 2018-01-20 14:30 | disposition home or self-care (01) ==
LOC: OR 10:24
PROVIDERS: ATTEND Podiatrist
DX: D17.23 Benign lipomatous neoplasm of skin and subcutaneous tissue of right leg (principal); I10 Essential (primary) hypertension; G25.81 Restless legs syndrome; F41.8 Other specified anxiety disorders; Z85.850 Personal history of malignant neoplasm of thyroid
CPT/HCPCS: 88304; J0690; J1100; J2250; J2704; J3010

== ENCOUNTER 2018-04-14 23:54 | Emergency (ER) | payer BC ==
[2018-04-15] MEDS ORDERED: Nicotine Inhaler* 10 MG AMP INH PRN (00:16)
--- NOTE | 2018-04-15 00:34 | ED ---
Psychiatric Complaint - HPI Summary HPI Summary: This patient is a 62 year old F brought in by [employer] to [facility] accompanied by her therapist with a chief complaint of suicidal ideations since earlier tonight. Patient keeps saying I just want to sleep and I just want to . Patients therapist states that the patient has insomnia and has had a lot to drink for the last few days. The patient says that she does not want to hurt herself. The patient rates the pain 0/10 in severity. Symptoms aggravated by EtOH consumption. Symptoms alleviated by nothing. Patient notes that she is taking gabapentin, blood pressure medication, and a thyroid medication. Patient has hx of depression. - History Of Current Complaint Chief Complaint: EDMentalHealth Time Seen by Provider: 04/15/18 00:11 Hx Obtained From: Patient, Other: - patient's therapist Onset/Duration: Gradual Onset, Lasting Days - 2 days, Still Present, Worse Since - this evening Timing: Constant Severity Initially: Moderate Severity Currently: Moderate Character: Depressed Aggravating Factor(s): Alcohol Use Alleviating Factor(s): Nothing Associated Signs And Symptoms: Positive: Sleep Disturbance Related History: Positive For: Prior Psychiatric Issues Has Suicidal: Reports: Thoughts Ingestion History: Type/Name Of Drug - EtOH, Approximate Time Of Ingestion - 2 days of drinking - Allergies/Home Medications Allergies/Adverse Reactions: Allergies Allergy/AdvReac Type Severity Reaction Status Date / Time No Known Allergies Allergy Verified 02/14/18 09:47 Home Medications: Home Medications Tiotropium Morley [Spiriva Respimat] 2 puff INH DAILY 04/15/18 [History Confirmed 04/15/18] amLODIPine TAB* [Norvasc 5 mg TAB*] 10 mg PO DAILY 04/15/18 [History Confirmed 04/15/18] PMH/Surg Hx/FS Hx/Imm Hx Endocrine/Hematology History: Reports: Hx Thyroid Disease - TOTAL THYROIDECTOMY AND PARATHYROIDECTOMY- Cancer Denies: Hx Diabetes Cardiovascular History: Reports: Hx Hypertension - HX OF, NO PROBLEMS NOW PER PT Denies: Hx Pacemaker/ICD, Other Cardiovascular Problems/Disorders Respiratory History: Denies: Hx Asthma - states she does not have asthma, used inhalers when sick , Hx Chronic Obstructive Pulmonary Disease (COPD), Other Respiratory Problems/ Disorders GI History: Reports: Other GI Disorders - Diverticulitis 12/24-Diverticulosis History: Denies: Hx Renal Disease, Other Problems/Disorders Musculoskeletal History: Denies: Hx Osteoporosis, Other Musculoskeletal History Sensory History: Denies: Hx Contacts or Glasses, Hx Hearing Aid Opthamlomology History: Denies: Hx Contacts or Glasses Neurological History: Reports: Other Neuro Impairments/Disorders - Takes neurontin for restless leg syndrome Psychiatric History: Reports: Hx Anxiety - on medications, Hx Depression - on new medication Denies: Hx Eating Disorder, Hx Panic Disorder, Hx of Violent Episodes Against Others - Cancer History Cancer Type, Location and Year: THYROID Hx Chemotherapy: No Hx Radiation Therapy: No - Surgical History Surgery Procedure, Year, and Place: 2005 [place] [facility] [place] 5TH [place] [facility] [place] [facility] [place] RIGHT FOOT PLANTAR FAS. 2018 RIGHT FOOT LUMP REMOVED Hx Anesthesia Reactions: No Infectious Disease History: Unable to Obtain/Confirm Infectious Disease History: Denies: Traveled Outside the [place] in Last 30 Days - Family History Known Family History: Positive: Cardiac Disease, Diabetes - Social History Alcohol Use: Weekly Alcohol Amount: 1 bottle of wine per day in the past- states she doesn't drink now Substance Use Type: Reports: None Smoking Status (MU): Former Smoker Type: Cigarettes Amount Used/How Often: PACK A DAY- for many years per pt Have You Smoked in the Last Year: Yes Review of Systems Negative: Fever Negative: Epistaxis Negative: Vomiting Neurological: Other - EtOH intoxication, sleep disturbance Psychological: Other - suidical ideations Positive: Depressed All Other Systems Reviewed And Are Negative: Yes Physical Exam - Summary Physical Exam Summary: GENERAL: Patient is a well-developed and nourished F who is lying comfortable in the stretcher. Patient is not in any acute respiratory distress. HEAD AND FACE: Normocephalic EYES: PERRLA, EOMI x 2. EARS: Hearing grossly intact. MOUTH: Oropharynx within normal limits. NECK: Supple, trachea is midline, no adenopathy, no JVD, no carotid bruit. CHEST: Symmetric, no tenderness at palpation LUNGS: Clear to auscultation bilaterally. No wheezing or crackles. CVS: Regular rate and rhythm, S1 and S2 present, no murmurs or gallops appreciated. ABDOMEN: Soft, non-tender. Bowel sounds are normal. No abdominal abnormal pulsations. EXTREMITIES: Full ROM in all major joints, no edema, no cyanosis or clubbing. NEURO: Alert and oriented x 3. No acute neurological deficits. Speech is normal and follows commands. SKIN: Dry and warm PSYCH: pt is tearful with sad affect Triage Information Reviewed: Yes Vital Signs On Initial Exam: Initial Vitals Temp Pulse Resp BP Pulse Ox 97.6 F 102 20 145/109 95 04/15/18 00:02 04/15/18 00:02 04/15/18 00:02 04/15/18 00:02 04/15/18 00:02 Vital Signs Reviewed: Yes Diagnostics - Vital Signs Vital Signs Temp Pulse Resp BP Pulse Ox 04/15/18 00:02 97.6 F 102 20 145/109 95 - Laboratory Result Diagrams: 04/15/18 00:45 04/15/18 00:45 Lab Statement: Any lab studies that have been ordered have been reviewed, and results considered in the medical decision making process. Course/Dx - Course Course Of Treatment: This patient is a 62 year old F with hx depression reporting suicidal ideations and EtOH intoxication since earlier tonight. Patient keeps saying I just want to sleep and I just want to . Patient was given Ativan IM for anxiety. Patient will be signed out to Dr. Adams from Dr. Gary upon physician shift change pending MHE. - Differential Dx/Clinical Impression Provider Diagnosis: Alcohol intoxication, Substance induced mood disorder Discharge - Sign-Out/Discharge Documenting (check all that apply): Sign-Out Patient - Patient will signed out to Dr. Adams from Dr. Gary upon physician shift change pending MHE. Signing out patient TO: Trevor Adams Receiving patient FROM: Nehemias Gary - Discharge Plan Condition: Stable Disposition: HOME Patient Education Materials: Mood Disorders (ED), Alcohol Intoxication (ED) Referrals: Nicolle Estrada MD [Primary Care Provider] - Additional Instructions: Never drink to excess. Do not use drugs. Follow-up with Ms. Montilla your counselor. A handout regarding drug and alcohol counseling in the local area of has also been provided to you. Do not drive today. Return if worse, depression, anxiety, suicidal thoughts or other concerns as discussed. - Billing Disposition and Condition Condition: STABLE Disposition: Home - Attestation Statements Document Initiated by Scribe: Yes Documenting Scribe: Ashlyn Burkett Provider For Whom Scribe is Documenting (Include Credential): Nehemias Gary MD Scribe Attestation: Ashlyn Vogt, scribed for Nehemias Gary MD on 04/16/18 at 0144. Scribe Documentation Reviewed: Yes Provider Attestation: The documentation as recorded by the scribeAshlyn accurately reflects the service I personally performed and the decisions made by me, Lois Gary MD
--- OUTSIDE RECORDS SUMMARY | 2018-04-15 00:35 | XMS REPORT ---
:1955 External Reference #:[id number] Author Organization [employer] Address [address] [place] [address] [place] [address] Phone [phone] Care Team Providers Name Role Phone Nicolle Estrada MD Primary Care Physician Unavailable Payers Type Date Identification Numbers Payment Provider Subscriber Commercial Policy Number: [id number] [facility] Palka Hendrix PayID: [id number] [address] [place] [address] Problems Date Description Provider Status Onset: 04/20/2012 Heart murmur [facility] Schedule Active Onset: 05/14/2016 Localized, primary osteoarthritis Leanna Klein M.D. Active Onset: 03/16/2018 Strain of musc/tend the rotator cuff of Scott Agrawal MD Active right shoulder, subs Onset: 03/16/2018 Localized superficial swelling of skin Scott Agrawal MD Active Family History Date Family Member(s) Problem(s) Comments General negative for heart disease,cancer,diabetes. : (age 52 Years) Mother due to Cancer Social History Type Date Description Comments Marital Status Lives With Alone Occupation Currently Working Cigarette Use Current Cigarette Smoker 1 pt has been smoking for 20 Pack Daily years Smokeless Tobacco Never Used Smokeless Tobacco ETOH Use Denies alcohol use Smoking Patient is a former smoker Recreational Drug Use Denies Drug Use Daily Caffeine Consumes on average 3 cups of regular coffee per day Exercise Type/Frequency Exercises regularly Allergies, Adverse Reactions, Alerts Date Description Reaction Status Severity Comments 12/28/2007 NKDA active Medications Medication Date Status Form Strength Qnty SIG Indications Ordering Provider Neurontin 12/27/ Active Capsules 400mg 180ca 2 PO QHS Qutaybeh 2007 ps Francisca Damon M.D. Amlodipine / Active Tablets 10mg Take 1 Tablet Unknown Besylate 0000 By Mouth Every Day For High Blood Pressure Losartan // Active Tablets 50mg Take 1 Tablet Unknown Potassium 0000 By Mouth Every Day For Hypertension Spiriva / Active Aerosol 2.5mcg/Ac Inhale 2 Unknown Respimat 0000 t Puffs By Mouth Once Daily For COPD Duloxetine HCL / Active Caps DR 30mg Blegen, 0000 Part MD Nicolle Levothyroxine / Active Tablets 112mcg Take 1 Tablet Unknown Sodium 0000 By Mouth 6 Days Per Week And Then Take 1 And 1/2 Tablets Percocet 05/14/ Hx Tablets 5-325mg 60tab 1-2 tabs by M25.561 Leanna 2015 - mouth q8 as Ernie 05/18/ needed pain Anival 2017 Lexapro 12/27/ Hx Tablets 30mg 1 PO qd Qutaybeh 2007 Francisca Damon M.D. Metoprolol / Hx 20mg Unknown Succinate ER 0000 Medications Administered in Office Medication Date Status Form Strength Qnty SIG Indications Ordering Provider Triamcinolone 03/16/ Administered Injection Zaneb (Kenalog) 2017 MD Tanja Depomedrol 40MG 05/14/ Administered Injection Leanna 2015 Anival Klein Depomedrol 40MG 05/14/ Administered Injection Leanna 2015 Anival Klein Vital Signs Date Vital Result Comment 04/06/2018 Heart Rate 72 /min BP Systolic 130 mmHg BP Diastolic 78 mmHg Respiratory Rate 16 /min Pain Level 5 03/16/2018 Height 62 inches 5'2" Weight 135.00 lb BP Systolic 130 mmHg BP Diastolic 78 mmHg Respiratory Rate 18 /min Body Temperature 97.9 F Pain Level 5 BMI (Body Mass Index) 24.7 kg/m2 02/27/2018 Height 62 inches 5'2" Weight 135.00 lb Heart Rate 86 /min BP Systolic 138 mmHg BP Diastolic 84 mmHg Respiratory Rate 18 /min Body Temperature 98.2 F BMI (Body Mass Index) 24.7 kg/m2 06/18/2016 Height 62 inches 5'2" Weight 132.00 lb Respiratory Rate 18 /min Pain Level 0 BMI (Body Mass Index) 24.1 kg/m2 05/14/2016 Height 62 inches 5'2" Weight 135.00 lb Heart Rate 65 /min BP Systolic 153 mmHg BP Diastolic 90 mmHg BMI (Body Mass Index) 24.7 kg/m2 08/03/2013 Height 62 inches 5'2" Weight 125.00 lb Heart Rate 54 /min BP Systolic 130 mmHg BP Diastolic 81 mmHg BMI (Body Mass Index) 22.9 kg/m2 12/28/2007 Height 62 inches 5'2" Weight 138.00 lb Heart Rate 79 /min BP Systolic Sitting 150 mmHg L BP Diastolic Sitting 80 mmHg L BMI (Body Mass Index) 25.2 kg/m2 Results Test Date Test Result H/L Range Note BUN/Creat/GFR 03/28/2018 Poc Blood Urea Nitrogen 17 mg/dL 8-26 Poc Creatinine 0.6 mg/dL 0.6-1.3 1 Poc BUN/Creatinine Ratio 28.3 High 8-20 Egfr Non- 101.0 >60 Egfr 122.2 >60 2 CBC With Electronic Diff 01/05/2008 White Blood Count 9.4 CUMM 4.8-10.8 Red Cell Count 4.91 CUMM 4.2-5.4 Hemoglobin 15.3 g/dL 12.0-16.0 Hematocrit 43 % 35-47 Mean Corpuscular Volume 87 um3 79-97 Mean Corpuscular Hemoglob 31 pg 27-31 Mean Corpuscular HGB Cone 36 g/dL 32-36 Redcell Distribution WDTH 14 % 10.5-15 Platelet Count 342 CUMM 150-450 Mean Platelet Volume 8.4 um3 7.4-10.4 Gran % 65.9 % 38-83 Lymph % 26.7 % 20-45 Mononuclear % 6.3 % 1-9 Eosinophil % 0 % 0-6 Basophil % 1.1 % 0-2 Abs Lymphs 2.5 1.0-4.8 Abs Mononuclear 0.6 0-0.8 Absolute Neutrophil Count 6.2 1.5-7.7 Abs Eosinophils 0 0-0.6 Abs Basophils 0.1 0-0.2 3 Comp Metabolic Panel 01/05/2008 Sodium 138 mmol/L 135-145 Potassium 4.3 mmol/L 3.5-5.0 Chloride 104 mmol/L 101-111 Co2 (Carbon Dioxide) 28.0 mmol/L 22-32 Anion Gap 6.0 mmol/L 2-11 4 Glucose 90 mg/dL 70-105 BUN 17 mg/dL 6-24 Creatinine 0.7 mg/dL 0.5-1.4 One Over Creatinine 1.42 BUN/Creatinine Ratio 24.3 High 8-20 Calcium 10.3 mg/dL High 8.1-9.9 5 Total Protein 7.2 GM/DL 6.2-8.1 Albumin 4.3 GM/DL 3.6-5.4 Globulin 2.9 GM/DL 2-4 Albumin/Globulin Ratio 1.5 1-3 Bilirubin Total 0.7 mg/dL 0.4-1.5 Alkaline Phosphatase 97 U/L 30-110 Alt (SGPT) 24 U/L 14-54 Ast (Sgot) 26 U/L 12-42 Thyroxine Free 01/05/2008 Free Thyroxine 0.69 NG/ML 0.61-1.24 6 Laboratory test finding 01/05/2008 TSH 1.36 MIU/ML 0.34-5.60 1 Prom Burn Off Operator: [id number] 2 Because ethnic data is not always readily available, this report includes an eGFR for both -Americans and non- Americans. The National Kidney Disease Education Program (NKDEP) does not endorse the use of the MDRD equation for patients that are not between the ages of 18 and 70, are , have extremes of body size, muscle mass, or nutritional status, or are non- or non-. According to the National Kidney Foundation, irrespective of diagnosis, the stage of the disease is based on the level of kidney function: Stage Description GFR(mL/min/1.73 m(2)) 1 Kidney damage with normal or decreased GFR 90 2 Kidney damage with mild decrease in GFR 60-89 3 Moderate decrease in GFR 30-59 4 Severe decrease in GFR 15-29 5 Kidney failure <15 (or dialysis) 3 H H Check Failed 4 Anion gap measurement may be of limited value in the presence of any alkalosis, especially in a combined acid base disorder. . 5 Please note change in reference range effective 07 . 6 PLEASE NOTE NEW REFERENCE RANGES. Procedures Date CPT Code Description Status 03/16/2018 31777 Inject/Drain Joint/Bursa Major W/O US Completed 05/14/201653245 Inject/Drain Joint/Bursa Major W/O US Completed 04/20/2012 76200 ECHO Transthoracic, Real-Time 2D With Doppler And Color Completed Flow 12/28/2007 03333 Holter Monitor Completed 12/28/2007 80617 EKG Tracing & Interpretation Completed 12/28/2007 24771 EKG Tracing & Interpretation Completed Encounters Type Date Location Provider CPT E/M Dx Office Visit 03/16/2018 1:00p [facility] [place] [address] R22.31 C.M.A. S46.011D M19.011 Office Visit 02/27/2018 9:15a [facility] [place] [address] R22.31 [employer] M25.511 Office Visit 06/18/2016 8:45a [facility] M.D. 90960 M25.561 C.M.A. M25.562 M17.0 M25.462 M25.461 Office Visit 05/14/2016 8:45a [facility] M.D. 35358 M25.561 C.M.A. M25.562 M17.0 M25.462 M25.461 Office Visit 08/03/2013 8:30a [facility] M.D. 68766 924.11 C.M.A. Office Visit 12/28/2007 2:40p [facility] S. 16141 401.0 Anival Damon 786.50 785.1 785.0 Plan of Care 03/16/2018 - Scott Agrawal, MDR22.31 Localized swelling, mass and lump, right upper limbFollow up:Follow up: after MRI with hlppxohbO71.011D Strain of musc/ tend the rotator cuff of right shoulder, subsM19.011 Primary osteoarthritis, right shoulder
--- OUTSIDE RECORDS SUMMARY | 2018-04-15 00:35 | XMS REPORT ---
:1955 External Reference #:[id number] Author Organization [employer] Address [address] [place] [address] Phone [phone] Care Team Providers Name Role Phone Nicolle Estrada MD Primary Care Physician Unavailable Payers Type Date Identification Numbers Payment Provider Subscriber Commercial Policy Number: [id number] [facility] Palak Hendrix PayID: [id number] [address] [place] [address] Problems Date Description Provider Status Onset: 04/20/2012 [...] Every Day For High Blood Pressure Losartan 00// Active Tablets 50mg Take 1 Tablet Unknown [...] Hx Tablets 30mg 1 PO qd Qutaybeh 2008 Francisca Damon M.D. Metoprolol / Hx 20mg Unknown Succinate ER 0000 Medications Administered in Office Medication Date Status Form Strength Qnty SIG Indications Ordering Provider Depomedrol Administered Injection Leanna 40MG 016 Anival Klein Depomedrol Administered Injection Leanna 40MG 016 Anival Klein Vital Signs Date Vital Result Comment 03/16/2018 Height 62 inches 5'2" Weight 135.00 [...] Test Date Test Result H/L Range Note CBC With Electronic Diff 01/05/2008 White Blood [...] Eosinophils 0 0-0.6 Abs Basophils 0.1 0-0.2 1 Comp Metabolic Panel 01/05/2008 Sodium 138 mmol/L 135-145 Potassium 4.3 mmol/L 3.5-5.0 Chloride 104 mmol/L 101-111 Co2 (Carbon Dioxide) 28.0 mmol/L 22-32 Anion Gap 6.0 mmol/L 2-11 2 Glucose 90 mg/dL 70-105 BUN 17 mg/dL 6-24 Creatinine 0.7 mg/dL 0.5-1.4 One Over Creatinine 1.42 BUN/Creatinine Ratio 24.3 High 8-20 Calcium 10.3 mg/dL High 8.1-9.9 3 Total Protein 7.2 GM/DL 6.2-8.1 Albumin 4.3 GM/DL 3.6-5.4 Globulin 2.9 GM/DL 2-4 Albumin/Globulin Ratio 1.5 1-3 Bilirubin Total 0.7 mg/dL 0.4-1.5 Alkaline Phosphatase 97 U/L 30-110 Alt (SGPT) 24 U/L 14-54 Ast (Sgot) 26 U/L 12-42 Thyroxine Free 01/05/2008 Free Thyroxine 0.69 NG/ML 0.61-1.24 4 Laboratory test finding 01/05/2008 TSH 1.36 MIU/ML 0.34-5.60 1 H H Check Failed 2 Anion gap measurement may be of limited value in the presence of any alkalosis, especially in a combined acid base disorder. . 3 Please note change in reference range effective 07 . 4 PLEASE NOTE NEW REFERENCE RANGES. Procedures Date CPT Code Description Status 05/14/2016 59610 Inject/Drain Joint/Bursa Major W/O US Completed 04/20/2012 12854 ECHO Transthoracic, Real-Time 2D With Doppler And Color Completed Flow 12/28/2007 28419 Holter Monitor Completed 12/28/2007 15402 EKG Tracing & Interpretation Completed 12/28/2007 36178 EKG Tracing & Interpretation Completed Encounters Type Date Location Provider CPT E/M Dx Office Visit 02/27/2018 [facility] [place] [address] R22.31 9:15a Clinical Data Management Director M25.511 Office Visit 06/18/2016 8:45a [facility] M.D. 95731 M25.561 C.M.A. M25.562 M17.0 M25.462 M25.461 Office Visit 05/14/2016 8:45a [facility] M.D. 12908 M25.561 C.M.A. M25.562 M17.0 M25.462 M25.461 Office Visit 08/03/2013 8:30a [facility] M.D. 52552 924.11 C.M.A. Office Visit 12/28/2007 2:40p [facility] SReshma 63664 401.0 Anival Damon 786.50 785.1 785.0 Plan of Care 03/16/2018 - Scott Agrawal, MDR22.31 Localized swelling, mass and lump, right upper limbNew Xrays:MRI Shoulder Right WFollow up:Follow up: after MRI with ggssfrygM32.011D Strain of musc/tend the rotator cuff of right shoulder, subsM19.011 Primary osteoarthritis, right shoulder
[2018-04-15] MEDS ORDERED: LORazepam INJ* 2 MG/ML 1 ML VIAL IM ONE (00:46)
[2018-04-15] MEDS ORDERED: diPHENhydraMINE PO* 25 MG PO ONE (00:46)
[2018-04-15 00:58] LABS: ABS Basophils 0.3 10^3/ul (0-0.2); ABS Eosinophils 0.1 10^3/ul (0-0.6); ABS Monocytes 0.6 10^3/ul (0-0.8); ABS Neutrophils 6.5 10^3/ul (1.5-7.7); ABS Nucleated RBC 0 10^3/ul; Eosinophil % 0.8 % (0-6); Hematocrit 47 % (35-47); Hemoglobin 15.8 g/dl (12.0-16.0); Lymphocyte % 28.5 % (25-47); Mean Corpuscular HGB Conc 34 g/dl (31-36); Mean Corpuscular Hemoglobin 31 pg (27-31); Mean Corpuscular Volume 92 fL (80-97); Mean Platelet Volume 7.3 fL (7.4-10.4); Nucleated Red Blood Cells % 0.2; Platelet Count 513 10^3/ul (150-450); Red Blood Count 5.05 10^6/ul (4.00-5.40); Red Cell Distribution Width 15 % (10.5-15); White Blood Count 10.5 10^3/ul (3.5-10.8)
[2018-04-15 01:35] LABS: Urine Appearance Cloudy; Urine Blood Negative (Negative); Urine Color Yellow; Urine Ketones Trace (Negative); Urine Protein 1+(30 mg/dL) (Negative); Urine Red Blood Cell Trace(0-2/hpf) (Absent); Urine Specific Gravity 1.012 (1.010-1.030); Urine Urobilinogen Negative (Negative); Urine White Blood Cell Trace(0-5/hpf) (Absent)
[2018-04-15] MEDS ORDERED: Nicotine Inhaler* 10 MG AMP ONE (03:01)
[2018-04-15] MEDS ORDERED: Mouth Piece, Nicotine* 1 EACH CARTRIDGE ONE (03:01)
[2018-04-15] MEDS ORDERED: Mouth Piece, Nicotine* 1 EACH CARTRIDGE INH ONE (04:00)
--- NOTE | 2018-04-15 07:23 | ED ---
Progress - Progress Note Progress Note: Patient was signed out from Dr. Gary upon shift change pending MHE. Re-Evaluation - Re-Evaluation First Eval Re-Evaluation Time: 08:45 Change: Improved Comment: Patient is awake and denies SI. She states she sees a private counselor , Karan Landeros. Course/Dx - Course Course Of Treatment: This patient is a 62 year old F with hx depression reporting suicidal ideations and EtOH intoxication since earlier tonight. Patient keeps saying I just want to sleep and I just want to . Patient was given Ativan IM for anxiety. Patient sobered in the ER and now demonstrates functional capacity consistent clear speech, steady gait and normal cognition/decision making. She reports that she has no suicidal thoughts or feelings and that she sees an outpatient therapist for ongoing depression. I have encouraged her to never drink to excess and to follow-up with her outpatient therapist on Tuesday. - Diagnoses Provider Diagnoses: Alcohol intoxication, Substance induced mood disorder Discharge - Sign-Out/Discharge Documenting (check all that apply): Patient Departure - Discharge home, Receiving Sign-Out Receiving patient FROM: Nehemias Gary - Upon shift change pending MHE - Discharge Plan Condition: Stable Disposition: HOME Patient Education Materials: Mood Disorders (ED), Alcohol Intoxication (ED) Referrals: Nicolle Estrada MD [Primary Care Provider] - Additional Instructions: Never drink to excess. Do not use drugs. Follow-up with Nathanlianne your counselor. A handout regarding drug and alcohol counseling in the local area of has also been provided to you. Do not drive today. Return if worse, depression, anxiety, suicidal thoughts or other concerns as discussed. - Billing Disposition and Condition Condition: STABLE Disposition: Home - Attestation Statements Document Initiated by Scribe: Yes Documenting Scribe: Marley Ybarra Provider For Whom Scribe is Documenting (Include Credential): Dr. Trevor Adams MD Scribe Attestation: IMarley, scribed for Dr. Trevor Adams MD on 04/15/18 at 1213. Scribe Documentation Reviewed: Yes Provider Attestation: The documentation as recorded by the Marley fonseca accurately reflects the service I personally performed and the decisions made by me, Dr. Trevor Adams MD
[2018-04-15 09:03] VITALS: BP 127/79
== END 2018-04-15 09:02 | disposition home or self-care (01) ==
LOC: ED 23:54
DX: F10.129 Alcohol abuse with intoxication, unspecified (principal); F19.94 Other psychoactive substance use, unspecified with psychoactive substance-induced mood disorder; F41.9 Anxiety disorder, unspecified; F32.9 Major depressive disorder, single episode, unspecified; Z87.891 Personal history of nicotine dependence
CPT/HCPCS: 36415; 80053; 80307; 80320; 80329; 81003; 81015; 84443; 85025; 87086; 96372; 99285; A9270-GY; G0480; J2060

== ENCOUNTER → 2018-09-06 06:37 | Day surgery (SDC) | payer BC ==
--- NOTE | 2018-09-03 20:59 | HP ---
PREOPERATIVE HISTORY AND PHYSICAL: DATE OF ADMISSION/SURGERY: 09/06/18 ATTENDING SURGEON: Dr. Scott Agrawal.* (DICTATED BY MERLIN OSCAR) PROCEDURE: Right shoulder arthroscopic rotator cuff repair, decompression, debridement, and arthroscopic excision of distal clavicle. CHIEF COMPLAINT: Right shoulder pain. HISTORY OF PRESENT ILLNESS: Palak is a 62-year-old female, who presents to the clinic for right shoulder pain due to a rotator cuff tear and AC joint osteoarthritis. She has failed conservative measures and therefore agreed to undergo a right shoulder arthroscopic rotator cuff repair, decompression, debridement, and arthroscopic excision of distal clavicle with Dr. Agrawal on . PAST MEDICAL HISTORY: Hypertension, anxiety, restless legs syndrome, COPD, history of thyroidectomy for thyroid cancer. PAST SURGICAL HISTORY: Thyroidectomy, plantar fasciitis on the right foot, and another right foot surgery. The patient denies prior complications with anesthesia. MEDICATIONS: 1. Neurontin 400 mg 2 by mouth at night. 2. Amlodipine 10 mg 1 by mouth daily. 3. Losartan 50 mg 1 by mouth daily. 4. Spiriva Respimat 2.5 mcg per ACT 2 puffs once daily. 5. Levothyroxine 112 mcg 1 by mouth daily. ALLERGIES: No known drug allergies. FAMILY HISTORY: Denies pertinent family history. SOCIAL HISTORY: She lives alone. She is a smoker at half a pack per day. She denies alcohol consumption. She is right-hand dominant. REVIEW OF SYSTEMS: A 14-point review of systems was reviewed with the patient. Positive for current complaint, otherwise negative. Denies history of DVT or PE , history of bleeding disorder. Denies fever, chills, chest pain, shortness of breath. PHYSICAL EXAMINATION GENERAL: A 62-year-old well-developed, well-nourished female, in no acute distress. VITAL SIGNS: Height 62, weight 133, pulse 76, blood pressure 130/70, respiratory rate 16, BMI 24.3. HEENT: Normocephalic, atraumatic. PERRLA. Throat clear. NECK: Supple. PULMONARY: Lungs are clear to auscultation bilaterally. No wheezing, rhonchi, or rales. CARDIO: Regular rate and rhythm. S1, S2. No murmurs, gallops, or rubs. No edema. ABDOMEN: Positive bowel sounds. MUSCULOSKELETAL: Right upper extremity: Skin is intact. No warmth or erythema. Tenderness over the AC joint and bicipital groove. Forward flexion and abduction to 155. +4/5 strength to rotator cuff testing with pain. Positive impingement, [place], [place], [place]. +2 radial pulse. Sensation intact to light touch distally. DIAGNOSTIC STUDIES: MRI revealed high-grade partial-thickness rotator cuff tear. IMPRESSION: Right shoulder rotator cuff tear and acromioclavicular joint arthritis. PLAN: The patient is scheduled to undergo a right shoulder arthroscopic rotator cuff repair, decompression, debridement, and arthroscopic excision of distal clavicle with Dr. Agrawal on 09/06/18. She will follow up 10 to 14 days postop for followup and suture removal. Percocet will be used for postop pain management. MERLIN OSCAR [id number]/[facility] #: [id number] LISANDRO
[~2018-09-06 06:37] MED LIST changes: +Acetaminophen IV 1GM/100ML * 1,000 MG/100 ML VIAL IVPB ONE; +Acetaminophen IV 1GM/100ML * 100 ML ONE; +Acetaminophen TAB* 325 MG ONE; +Acetaminophen TAB* 325 MG PO ONE; -Buffered Lidocaine 0.9% SYRIN* 5 ML/SYR SYRINGE INTRADERM ONE; +Buffered Lidocaine 1% SYRIN* 1 ML/SYRINGE INTRADERM ONE; +Dexamethasone IV* 4 MG/ML 1 ML (4 MG) ONE; +DiMENhydriNATE IV* 50 MG/ML VIAL IV PUSH PRN; -Famotidine IV* 10 MG/ML 2 ML (20 mg) IV ONE; +Famotidine TAB* 20 MG ONE; +Famotidine TAB* 20 MG PO ONE; +HYDROmorphone INJ1* 1 MG/ML SYRINGE ONE; +KETAMINE HCL* 50 MG/ML 10 ML VIAL ONE; +Ketorolac INJ* 30 MG/ML 1 ML VIAL IV PRN; +Ketorolac INJ* 30 MG/ML 1 ML VIAL ONE; +Lactated Ringers 1000 ML Bag* 1,000 ML IV SCH; +Midazolam* 1 MG/ML 2 ML VIAL (2 MG) ONE; +Naloxone* 0.4 MG/ML 1 ML VIAL IV PRN; +Ondansetron INJ* 2 MG/ML VIAL ONE; +PROCHLORPERAZINE INJ 5 MG/ML 2 ML VIAL IV PRN; +Propofol* 10 MG/ML 20 ML BTL ONE; +Rocuronium* 10 MG/ML VIAL ONE; +Ropivacaine* 2 MG/ML 20 ML VIAL (0.2%) ONE; +ceFAZolin 2 GM in NS PREMIX(*) 2 GM/100 ML BAG IVPB ONE; +celeCOXIB CAP* 100 MG ONE; +celeCOXIB CAP* 200 MG PO ONE; +fentaNYL* 50 MCG/ML 2 ML VIAL (100 MCG VIAL) IV PRN; +oxyCODONE TAB* 5 MG TAB ONE; +oxyCODONE TAB* 5 MG TAB PO PRN
[2018-09-06] MEDS: HYDROmorphone INJ1* 1 MG/ML SYRINGE IV PRN ×5 (11:01→11:43)
[2018-09-06 12:28] VITALS: BP 136/85
--- NOTE | 2018-09-06 19:58 | PN ---
Progress Note - Progress Note Date of Service: 09/06/18 Note: Ms. Hendrix called the hospital this evening concerned about left eye pain after her shoulder procedure today. In PACU pt c/o of left eye pain and blurriness of her left eye. Eye was examined under light and no foreign object or obvious abrasion were seen. Spoke with the pt at the time and she stated that her eye felt better before discharge from PACU. I reassured the patient that after a general anesthetic, sometimes a corneal abrasion can occur. I stated that if her symptoms did not improve, that I would refer her to an gas charger. I stated that I would call her tomorrow to follow-up with her and see if her left eye was still bothering her. After the pt called the hospital this evening, I returned her phone call and spoke to her about her concerns for left eye pain. She stated that it has gotten worse since she left the hospital. I recommended that the pt should obtain over the counter lubricant eye drops (Refresh or Systane) from her local pharmacy to help keep her eye lubricated. I reassured her that corneal abrasions usually resolved on their own, however I stated that if she feels like it is not improving by tomorrow morning that I would refer her to an gas charger. I also recommended that if her pain is severe, that she should go to a local emergency department to have her eye evaluated. I will follow-up with Ms. Hendrix tomorrow with a phone call to see if her symptoms have resolved. If not, I will make arrangements for her to see a local gas charger for an evaluation of a corneal abrasion. Mendez Jacobsen MD
--- NOTE | 2018-09-07 03:45 | OP ---
OPERATIVE NOTE: ADDENDUM: After the patch was secured, the shoulder was taken through gentle range of motion. Final images were obtained. All fluid and debris was removed from the joint itself. The wounds were copiously irrigated with sterile saline. Portals were closed with 3-0 nylon. Sterile dressings were applied as well as a Cryo/Cuff and a regular sling. She was awoken from anesthesia and transferred to PACU in stable condition. POSTOPERATIVE PLAN: She will be nonweightbearing. She will be on pain medication. DVT prophylaxis was considered but deferred due to no previous personal or family history. I will see the patient back in 10 to 14 days. [id number]/[facility] #: [id number] [facility]
--- NOTE | 2018-09-07 05:26 | OP ---
OPERATIVE REPORT: DATE OF OPERATION: 09/06/18 - [facility] DATE OF : 53 ATTENDING SURGEON: Scott Agrawal MD. FILLER SHREDDER HELPER: MERLIN Duran. An nurses medical assistants phlebotomists was needed for the entirety of the case to help with positioning, retraction, and utilized throughout all portions of the case. ANESTHESIOLOGIST: Dr. Jacobsen. ANESTHESIA: General. PRE-OP DIAGNOSES: Right shoulder glenohumeral arthritis with high-grade partial - thickness tear of the rotator cuff, bicipital tendinitis, and acromioclavicular joint arthritis. POST-OP DIAGNOSES: Right shoulder glenohumeral arthritis with high-grade partial- thickness tear of the rotator cuff, bicipital tendinitis, and acromioclavicular joint arthritis. OPERATIVE PROCEDURE: Right shoulder arthroscopy with: 1. Extensive glenohumeral debridement including chondroplasty and biceps tenotomy. 2. Subacromial decompression with acromioplasty. 3. Distal clavicle excision. 4. Rotator cuff repair using Regeneten patch. COMPLICATIONS: None. ESTIMATED BLOOD LOSS: Minimal. INDICATIONS: Palak Hendrix is a 62-year-old female with moderate glenohumeral arthritis and a partial-thickness tear of the rotator cuff. She was also found have an incidental lipoma that was removed at an outside facility by a tumor specialist. She has persistent pain in her shoulders. She has failed conservative management including physical therapy, antiinflammatories, ice, heat, and injection. She is a candidate for replacement; but she has a high-grade partial- thickness tear of the rotator cuff which needs to be addressed. After extensive discussion of the risks and benefits of surgery versus nonoperative treatment including possible replacement to start with, she has elected to proceed with arthroscopic treatment to see if this will buy her time and put her in a better position for a replacement. The risks and benefits were discussed at length, included but not limited to bleeding; infection; damage to nerves, vessels, surrounding structures; wound nonhealing; persistent pain; need for surgery; scar; stiffness ; incomplete relief of symptoms; and risks of anesthesia. DESCRIPTION OF PROCEDURE: The patient was greeted in the preoperative area by the attending surgeon. Correct extremity was marked. Consent was confirmed. The patient was then brought back to the operating suite. She was placed in the supine position on the operating table. She underwent general anesthesia and endotracheal intubation, after which she was placed in the left lateral decubitus position with all bony prominences well padded. She was secured with a peg board. The right arm was draped unsterile with 10 pounds of traction. The right shoulder was then prepped and draped in the usual sterile fashion beginning with chlorhexidine soap, scrub, and alcohol wipe and a final prep with ChloraPrep. After appropriate surgical pause indicating site, side, procedure, and administration of antibiotics, the standard posterolateral portal was made sharply with an 11 blade. The scope was introduced into the joint. There were grade 2 and 3 changes in the glenohumeral joint with unstable flaps. There was tearing of the anterior, posterior, superior labrum. The biceps was obviously damaged and subluxed. There was high-grade partial-thickness tearing of the undersurface of the supraspinatus tendon. The subscap was intact. Infraspinatus was intact. The inferior recess was intact with significant synovitis. The anterior portal was made in outside-in fashion. Shaver was used to debride back the anterior, posterior, superior labrum and the biceps tenotomy. Chondroplasty was done as well of the glenohumeral joint. The undersurface of the rotator cuff was also debrided back, the unstable flap was debrided back. At this point, the debridement was completed. Attention was directed to the subacromial space. The scope was positioned in the subacromial space. Lateral portal was made in outside-in fashion. There was significant bursa that was hyperemic that was present. Nida were used to debride back to thick bursa. There was some mild bursal-sided tearing, but no full-thickness tear of the rotator cuff. The undersurface of the acromion had a large anterolateral hooked acromion, which was debrided back using the 4-0 oval bur after it was skeletonized. Once this was completed, attention was directed to the distal clavicle. With the bur brought in through the anterior portal, the distal 8 mm were resected using a 4-0 oval bur. After this was completed, attention was directed to the rotator cuff. The subacromial space was removed off any loose debris. The cuff was gently probed. Decision was made to proceed with a Regeneten patch to allow for healing of the partial-thickness tear, which will put her in a better position for replacement when she needed one. The Regeneten patch size medium was brought to the field and placed arthroscopically. Through a separate stab incision, a cannula was placed to facilitate passage of the tendon alvin medially. Once it was secured, the bone alvin were placed laterally. The graft was found to be in an appropriate position and well positioned. After the patch was secured, the shoulder was taken through gentle range of motion. Final images were obtained. All fluid and debris was removed from the joint itself. The wounds were copiously irrigated with sterile saline. Portals were closed with 3-0 nylon. Sterile dressings were applied as well as a Cryo/Cuff and a regular sling. She was awoken from anesthesia and transferred to PACU in stable condition. POSTOPERATIVE PLAN: She will be nonweightbearing. She will be on pain medication. DVT prophylaxis was considered but deferred due to no previous personal or family history. I will see the patient back in 10 to 14 days. [id number]/[facility] #: [id number]/[facility] #: [id number] LISANDRO
--- NOTE | 2018-09-07 10:52 | PN ---
Progress Note - Progress Note Date of Service: 09/07/18 Note: Spoke with Ms. Hendrix this morning about her left eye. Pt states her eye pain has not improved and has made arrangements herself to see an director commercial sales near her home today. I gave her an option to be referred to an director commercial sales within the [facility] system for concerns of a corneal abrasion, however she stated she wanted to see her director commercial sales today. I empathized with the pt's concerns and stated that if she has anymore questions to please call our office and I would be happy to speak with her again. Mendez Jacobsen MD
== END | disposition home or self-care (01) ==
LOC: OR 06:37
PROVIDERS: ATTEND Orthopaedic Surgery
DX: M19.011 Primary osteoarthritis, right shoulder (principal); M75.111 Incomplete rotator cuff tear or rupture of right shoulder, not specified as traumatic; M75.21 Bicipital tendinitis, right shoulder; I10 Essential (primary) hypertension; Z72.0 Tobacco use; F41.8 Other specified anxiety disorders; Z85.850 Personal history of malignant neoplasm of thyroid; J44.9 Chronic obstructive pulmonary disease, unspecified; G25.81 Restless legs syndrome
CPT/HCPCS: A9270-GY; C1713; J0690; J1100; J1170; J1885; J2250; J2405; J2704; J2795; J3010